=== PATIENT | female | born 1990 | race Caucasian/White ===

== ENCOUNTER 2022-07-12 07:40 | Emergency (ER) | payer OTHER ==
--- NOTE | 2022-07-12 07:51 | ED Physician Documentation ---
PD HPI LOWER EXT INJURY - Stated complaint Stated Complaint: RT ANKLE INJURY - History obtained from History obtained from: Patient - History of Present Illness PD HPI LOW EXT INJURY LOCATION: Right, Ankle Type of injury: Other (has had onset of medial right ankle pain without abrupt injury over past few weeks. Seen by PCP and Rx Ibuprofen and referred for PT, which is not until Nov. pain with plantarflex and wegiht bearing, the movement of putting boot on as well. Significantly increased pain the past 2 days with standing.). No: Fall, Twist Timing - onset: How many weeks ago (2-3) Timing - details: Gradual onset, Still present (much increased the past couple days), Waxing and waning Improved by: Rest Worsened by: Moving Associated symptoms: No: Weakness, Numbness, Swelling, Discolored Similar symptoms before: Diagnosis (had ankle avulsion fx and ligament tear 5 years ago. Healed to normal function with occ pains.) Recently seen: Clinic Review of Systems Musculoskeletal: denies: Joint swelling Neurologic: denies: Focal weakness, Numbness PD PAST MEDICAL HISTORY - Past Medical History Past Medical History: No Endocrine/Autoimmune: None Musculoskeletal: None - Present Medications Home Medications: Ambulatory Orders Medication Instructions Recorded Confirmed HYDROcod/ACETAM 5/325 [[place] 5/325] 1 ea PO Q6H PRN #12 tablet 07/12/22 Meloxicam [Mobic] 7.5 mg PO BID 10 Days #20 tablet 07/12/22 Spironolactone [Aldactone] 50 mg PO DAILY 07/12/22 07/12/22 - Allergies Allergies/Adverse Reactions: Allergies Allergy/AdvReac Type Severity Reaction Status Date / Time No Known Drug Allergies Allergy Verified 07/12/22 07:53 PD ED PE NORMAL - Vitals Vital signs reviewed: Yes - General General: Alert and oriented X 3, Well developed/nourished - Derm Derm: Normal color, Warm and dry - Extremities Extremities: Other (The right ankle shows tenderness along the anteromedial aspect just forward of the medial malleolus. No redness swelling or effusion. Laterally not tender. Achilles is firm and not tender. Range of motion is guarded for plantarflexion and inversion.) - Neuro Neuro: Alert and oriented X 3, No motor deficit, No sensory deficit Results - Vitals Vitals: Vital Signs - 24 hr 07/12/22 07:48 Temperature 36.4 C L Heart Rate 73 Respiratory 14 Rate Blood Pressure 129/68 O2 Saturation 100 Oxygen O2 Source Room air - Rads (name of study) right ankle Radiology: Prelim report reviewed, See rad report PD MEDICAL DECISION MAKING - ED course Complexity details: reviewed results, considered differential (sounds likely some ankle tendonitis without acute forceful new injury. Get xray and provide s plinting. Crutches short term due to pain. NSAIDs regularly. f/u PCP/PT/Ortho. ), d/w patient Departure - Departure Clinical Impression: Acute right ankle pain, Tendonitis of ankle Condition: Stable Record reviewed to determine appropriate education?: Yes Follow-Up: TIFFANIE GILBERT MD [Primary Care Provider] - [facility] [Provider Group] Prescriptions: Meloxicam [Mobic] 7.5 mg PO BID 10 Days #20 tablet HYDROcod/ACETAM 5/325 [[place] 5/325] 1 ea PO Q6H PRN #12 tablet PRN Reason: Pain Comments: Presume there is some irritation of the ligaments or muscles through the ankle. This can be a slow progression process due to repetitive irritation and use. Likely the underlying prior injury may be contributing with scar tissue etc. Your x-ray does not show any obvious acute fractures. Decreased range of motion and use of the ankle along with some regular anti- inflammatories hopefully will help improve this. Use the cast boot when up and around for the next couple of weeks. Meloxicam anti-inflammatory twice daily (longer lasting than ibuprofen so it can be taken not as often). Add Tylenol every 4-6 hours as needed for pain or hydrocodone/acetaminophen if needed for worse pain. Crutches short-term as needed for pain medication. Progress weightbearing as tolerated but continue to use the boot orthosis. Follow-up with your primary care and/or orthopedics for reevaluation in about a week to see how well the above treatments are doing. I transmitted your prescriptions to [facility] pharmacy. I am prescribing a short course of narcotic pain medication for you. These are potentially dangerous and addictive medications that should be used carefully. These medications may constipate you. Take an [id number] stool softener such as docusate twice daily with plenty of water while taking these medications. If you go 24 hours without a bowel movement, take [id number] MiraLAX, per package instructions. Do not drink or drive while taking these medications. If you received narcotic or sedating medications while in the emergency department do not drive for 24 hours. Store this medication in a safe, secure place and out of reach of children. It is a violation of federal law to give or sell this medication to another person or to use in a manner other than prescribed. The ED will not refill narcotic prescriptions, including prescriptions lost or stolen. You can dispose of unwanted medications at the [facility]'s office or at several pharmacies such as [facility]. Forms: Activity restrictions
[2022-07-12 07:53] VITALS: BP 129/68
[2022-07-12] MEDS ORDERED: HYDROcod/ACETAM 5/325 MG TABLET PO STA (08:06)
--- NOTE | 2022-07-12 08:39 | XRAY Report ---
PROCEDURE: Ankle 3 View RT INDICATIONS: medial ankle pain with walking TECHNIQUE: 3 views of the ankle were acquired. COMPARISON: None FINDINGS: Bones: No fractures or dislocations. Ankle mortise is normally aligned. No suspicious bony lesions . Soft tissues: No tibiotalar joint effusion. Achilles tendon appears normal. IMPRESSION: No acute osseous abnormality. If symptoms persist, follow-up radiographs and/or CT or MR I may be helpful for further evaluation. Reviewed by: Miguel Navarro MD on 07/12/2022 8:38 AM PDT Approved by: Miguel Navarro MD on 07/12/2022 8:38 AM PDT Station ID: [id number]
== END 2022-07-12 08:55 | disposition home or self-care (01) ==
LOC: ED 07:40
DX: M25.571 Pain in right ankle and joints of right foot (principal); M77.51 Other enthesopathy of right foot and ankle
CPT/HCPCS: 73610; 99282; 99283; A9270

== ENCOUNTER 2022-07-27 14:15 | Outpatient (CLI) | payer OTHER ==
--- NOTE | 2022-07-27 14:53 | SLEEP CARE CONSULTATION ---
Information from patient questionnaire entered by Robert Cuello. I have reviewed and concur with the information entered by Robert Cuello. This document represents the service I personally performed and the decisions made by me, Shi Mills ARNP. History of Present Illness Service Date and Time: 07/27/2022 1415 Reason for Visit: New patient Chief Complaint: reports: Insomnia, Unrefreshed sleep, Snoring, Excessive daytime sleepiness, Fatigue, Frequent awakenings at night Date of Onset: >2 yrs Usual bedtime: 10 PM Time it takes to fall asleep: about 1 hour Snores at night: Yes Observed to quit breathing while asleep: No Sleeps alone due to snoring: No Number of times waking at night: 2-3 Reasons for waking at night: reports: Bathroom. denies: Choking, Snoring, Gasping for air Toss, Turn, or Twitch while sleeping: Yes Recalls having dreams: No Usually gets out of bed at: 0600 Feels refreshed in the morning: No Morning headache: Yes (not usually; gets at night when laying down) Sleepy or fatigued during the day: Yes Ever fallen asleep while driving: No Takes day naps: No Dreams during day naps: No Prior sleep studies: No Additional HPI information: I had the pleasure of seeing ANNE MAGALLANES today regarding the possibility of her having a sleep disorder. Her current complaints are frequent night awakenings, excessive daytime sleepiness, fatigue, insomnia, snoring and unrefreshed sleep. She has a history of really bad gastric reflux and was encouraged by her dentist to be checked for sleep apnea. She does snore according to her . She feels she wakes up 2-3 times a night and rarely wakes up feeling rested. She can take an hour of so to fall asleep at the beginning of the night. 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 Patient is and lives in [place]. Have you smoked in the past 12 months: No Alcohol use: Yes Alcohol amount and frequency: 2-3 drinks on weekends Caffeine use: Yes Caffeine amount and frequency: 2-3 cups daily Family History Family history of sleep disordered breathing: No Family Hx Sleep Apnea: Father: Snoring Allergies and Home Medications Drug allergies reviewed: Yes (NKDA) Home medication list reviewed: Yes Allergy and home medication list: Allergies No Known Drug Allergies Allergy (Verified 07/12/22 07:53) Medications: Spironolactone Review of Systems Gastrointestinal: reports: heartburn, difficulty swallowing Neurological: reports: headaches Psychiatric: reports: anxiety Ear/Nose/Throat: reports: nasal congestion, sinus problems, dry mouth/throat (most of the day), hoarseness, tonsillectomy, wisdom teeth removed Musculoskeletal: reports: joint pain (right ankle pain) Physical Exam Vital signs obtained and entered by: ROBERT Dia MA Blood Pressure: 112/62 (left arm) Cuff size: regular Heart Rate: 67 O2 Saturation: 97 Height: 5 ft 9 in Weight: 165 lb Body Mass Index: 24.3 BMI Classification: Normal Neck circumference: 13.75 (inches) Mouth and throat: narrow oropharynx Soft palate: long Hard palate: normal Uvula: normal, long Uvula visualization: 25% Mallampati Class III Tongue: normal in size Tonsils: absent bilaterally Neck: normal w/o lymphadenopathy or thyromegaly Heart: regular rate and rhythm Lungs: clear bilaterally Impression and Plan 1. Suspected Obstructive Sleep Apnea-Hypopnea Syndrome, as suggested by a history of loud and irregular snoring, frequent awakening during the night, unrefreshed sleep, cognitive impairment, and excessive daytime sleepiness. Narrow oropharynx and obesity are common predisposing factors for obstructive sleep apnea-hypopnea syndrome. I recommend proceeding to polysomnography to confirm the diagnosis and to assess severity. If the patient has significant sleep disordered breathing, a manual CPAP titration study will also be performed to find the optimal treatment pressure. I informed the patient of what the sleep studies involve and after some discussion, obtained agreement to proceed. The pathophysiology of obstructive sleep apnea-hypopnea syndrome was discussed with the patient and health risks of cardiovascular and cerebrovascular disease if not treated. Risks of drowsy driving discussed in detail and patient advised to avoid long distance driving and to farm[employer] at the first sign of drowsiness. Patient agreed to plan. * Schedule polysomnography * Avoid long distance driving or driving when feeling sleepy. * Avoid alcohol, sedative and muscle relaxant around bedtime. * Attempt to lose weight. * Review instructions provided by trained office staff on how to prepare for the sleep study. * Return for follow-up after sleep study completed. Counseling Topics: Weight loss health impact Visit Type: In Office Time Spent with Patient (minutes): 32 Provider Statement: I spent 100% of the Face to Face Visit with the patient with greater than 50% spent counseling the patient and coordination of care.
[2022-07-27 14:54] VITALS: BP 112/62
== END 2022-07-27 14:16 | disposition home or self-care (01) ==
LOC: SC 14:15
PROVIDERS: ATTEND Nurse Practitioner Family
DX: R06.83 Snoring (principal); G47.8 Other sleep disorders; G47.10 Hypersomnia, unspecified; R53.83 Other fatigue
CPT/HCPCS: 99203; 99212

== ENCOUNTER 2022-08-15 20:46 | Emergency (ER) | payer OTHER ==
--- OUTSIDE RECORDS SUMMARY | 2022-08-15 21:09 | EXTERNAL MEDICAL SUMMARY RPT | Continuity of Care Document ---
:1990 Author Organization [facility] Address [address] [place] [address] Phone Allergies No information. Encounters No information. Functional Status No information. Immunizations No information. Medications No information. Problems No information. Procedures No information. Results/Labs test date author facility value unit interpret ation Result panel 1 (unknown) (no (unknown) (unknown) (no value) (units (unk nown) date) unknown) (unknown) (no (unknown) (unknown) 1. No marrow edema. (unit s (unknown) date) No fracture or unknown) dislocation. No metatarsal stress (unknown) (no (unknown) (unknown) 07/27/22 (units (unkno wn) date) unknown) (unknown) (no (unknown) (unknown) [address] [place] [address] (units (unknown) date) unknown) (unknown) (no (unknown) (unknown) 2. Right foot (units ( unknown) date) tendons and ligaments unknown) are grossly intact. No muscle signal (unknown) (no (unknown) (unknown) Accession Number: (units (unknown) date) [id number] unknown) (unknown) (no (unknown) (unknown) Age/Sex: 32 / F Date (uni ts (unknown) date) of Service: unknown) (unknown) (no (unknown) (unknown) [place] [address] (unit s (unknown) date) unknown) (unknown) (no (unknown) (unknown) Approved by: Ashwin (units (unknown) date) Jessika Maher on unknown) 07/28/2022 at 10:56 (unknown) (no (unknown) (unknown) Bones and joints: No (uni ts (unknown) date) bone marrow unknown) contusions or metatarsal stress fractures. (unknown) (no (unknown) (unknown) COMPARISON: None. (units (unknown) date) unknown) (unknown) (no (unknown) (unknown) : 1990 (units (unknown) date) Acct:[id number] unknown) (unknown) (no (unknown) (unknown) Dictated by: Ashwin (units (unknown) date) Jessika Maher on unknown) 07/28/2022 at 10:54 (unknown) (no (unknown) (unknown) FINDINGS: (units (unkn own) date) unknown) (unknown) (no (unknown) (unknown) IMPRESSION: (units (un known) date) unknown) (unknown) (no (unknown) (unknown) INDICATIONS: PAIN IN (uni ts (unknown) date) RIGHT FOOT unknown) (unknown) (no (unknown) (unknown) Image quality: (units (unknown) date) Excellent. unknown) (unknown) (no (unknown) (unknown) [facility] (units (unknown) date) unknown) (unknown) (no (unknown) (unknown) Lisfranc ligament (units (unknown) date) appears intact. No unknown) soft tissue ganglion cysts or bursal (unknown) (no (unknown) (unknown) Loc: MRI (units (unkno wn) date) unknown) (unknown) (no (unknown) (unknown) [id number] (units (unk nown) date) unknown) (unknown) (no (unknown) (unknown) Magnetic Resonance (units (unknown) date) Report unknown) (unknown) (no (unknown) (unknown) Noncontrast sagittal (uni ts (unknown) date) T1 spin echo and T2 unknown) fast spin echo with fat saturation, (unknown) (no (unknown) (unknown) Ordering Provider: (units (unknown) date) Yasmine Espinoza MD unknown) (unknown) (no (unknown) (unknown) PROCEDURE: MR FOOT (units (unknown) date) RT WO CON unknown) (unknown) (no (unknown) (unknown) Patient: (units (unkno wn) date) Edith Chu unknown) MR#: (unknown) (no (unknown) (unknown) Procedure: MR foot (units (unknown) date) RT wo con unknown) (unknown) (no (unknown) (unknown) Signed (units (unkno wn) date) unknown) (unknown) (no (unknown) (unknown) Soft tissues: The (units (unknown) date) visualized plantar unknown) foot muscles demonstrate normal signal (unknown) (no (unknown) (unknown) TECHNIQUE: (units (unk nown) date) unknown) (unknown) (no (unknown) (unknown) The distal (units (unk nown) date) unknown) (unknown) (no (unknown) (unknown) The (units (unkno wn) date) unknown) (unknown) (no (unknown) (unknown) Visualized flexor (units (unknown) date) and extensor tendons unknown) appear intact, without tenosynovitis. (unknown) (no (unknown) (unknown) abnormalities. (units (unknown) date) unknown) (unknown) (no (unknown) (unknown) and T2 fast (units (un known) date) unknown) (unknown) (no (unknown) (unknown) and bulk. (units (unkn own) date) unknown) (unknown) (no (unknown) (unknown) collections. (units (u nknown) date) Sagittal images unknown) demonstrate no evidence for plantar plate tears. (unknown) (no (unknown) (unknown) fluid (units (unkno wn) date) unknown) (unknown) (no (unknown) (unknown) fractures. (units (unk nown) date) unknown) (unknown) (no (unknown) (unknown) insertions of the (units (unknown) date) peroneus brevis and unknown) longus tendons appear intact. The (unknown) (no (unknown) (unknown) long-axis T1 (units (u nknown) date) unknown) (unknown) (no (unknown) (unknown) metatarsophalangeal (unit s (unknown) date) joint degeneration. unknown) No intraosseous lesions. (unknown) (no (unknown) (unknown) principal (units (unkn own) date) unknown) (unknown) (no (unknown) (unknown) sesamoid bones (units (unknown) date) appear in expected unknown) positions, without internal edema. No (unknown) (no (unknown) (unknown) significant (units (un known) date) unknown) (unknown) (no (unknown) (unknown) spin echo and T2 (units (unknown) date) fast spin echo with unknown) fat saturation, short-axis T1 spin echo (unknown) (no (unknown) (unknown) spin echo with fat (units (unknown) date) saturation through unknown) the forefoot. Result panel 2 (unknown) (no (unknown) (unknown) (no value) (units (unk nown) date) unknown) (unknown) (no (unknown) (unknown) 1. Mild focal signal (uni ts (unknown) date) abnormality at the unknown) 2nd metatarsal head adjacent to the (unknown) (no (unknown) (unknown) 08/11/22 (units (unkno wn) date) unknown) (unknown) (no (unknown) (unknown) [address] [place] [address] (units (unknown) date) unknown) (unknown) (no (unknown) (unknown) 2. Mild hallux (units (unknown) date) valgus and mild to unknown) moderate degenerative changes at the 1st (unknown) (no (unknown) (unknown) 2nd (units (unkno wn) date) metatarsophalangeal unknown) joint. (unknown) (no (unknown) (unknown) 3. Mild tendinosis (units (unknown) date) of the flexor unknown) hallucis longus tendon. (unknown) (no (unknown) (unknown) Accession Number: (units (unknown) date) [id number] unknown) (unknown) (no (unknown) (unknown) Accession Number: (units (unknown) date) [id number] unknown) (unknown) (no (unknown) (unknown) Age/Sex: 32 / Date (uni ts (unknown) date) of Service: unknown) (unknown) (no (unknown) (unknown) [place] [address] (unit s (unknown) date) unknown) (unknown) (no (unknown) (unknown) Anterior structures: (uni ts (unknown) date) The extensor tendons unknown) appear intact. (unknown) (no (unknown) (unknown) Approved by: Miguel (unit s (unknown) date) Jessika Knutson on unknown) 08/15/2022 at 8:25 (unknown) (no (unknown) (unknown) Approved by: Sherwin (units (unknown) date) Jessika Suazo on unknown) 08/14/2022 at 10:55 (unknown) (no (unknown) (unknown) Bones and joints: (units (unknown) date) Mild focal signal unknown) abnormality is seen within the 2nd (unknown) (no (unknown) (unknown) Bones and joints: No (uni ts (unknown) date) marrow edema. No unknown) dislocation. No osteochondral defect. (unknown) (no (unknown) (unknown) COMPARISON: [facility], MR, MR unknown) ANKLE RT WO CON, 07/27/2022, 20:10. (unknown) (no (unknown) (unknown) COMPARISON: [facility] (units (unknown) date) [facility], MR, MR FOOT unknown) RT WO CON, 07/27/2022, 19:42. (unknown) (no (unknown) (unknown) : 1990 (units (unknown) date) Acct:[id number] unknown) (unknown) (no (unknown) (unknown) FINDINGS: (units (unkn own) date) unknown) (unknown) (no (unknown) (unknown) IMPRESSION: Mild (units (unknown) date) edema noted in the unknown) pre Achilles space, correlate with (unknown) (no (unknown) (unknown) IMPRESSION: (units (un known) date) unknown) (unknown) (no (unknown) (unknown) INDICATIONS: PAIN IN (uni ts (unknown) date) RIGHT FOOT/ANKLE unknown) (unknown) (no (unknown) (unknown) Image quality: (units (unknown) date) Excellent. unknown) (unknown) (no (unknown) (unknown) [facility] (units (unknown) date) unknown) (unknown) (no (unknown) (unknown) Lateral structures: (unit s (unknown) date) The ATFL is mildly unknown) thickened. This CF and PTFL are (unknown) (no (unknown) (unknown) Loc: MRI (units (unkno wn) date) unknown) (unknown) (no (unknown) (unknown) [id number] (units (unk nown) date) unknown) (unknown) (no (unknown) (unknown) Magnetic Resonance (units (unknown) date) Report unknown) (unknown) (no (unknown) (unknown) Medial structures: (units (unknown) date) Mild fluid unknown) surrounding the posterior tibialis tendon again (unknown) (no (unknown) (unknown) No (units (unkno wn) date) unknown) (unknown) (no (unknown) (unknown) Noncontrast sagittal (uni ts (unknown) date) T1 spin echo and T2 unknown) fast spin echo with fat saturation, (unknown) (no (unknown) (unknown) Ordering Provider: (units (unknown) date) Yasmine Espinoza MD unknown) (unknown) (no (unknown) (unknown) PROCEDURE: MR ANKLE (unit s (unknown) date) RT WO CON unknown) (unknown) (no (unknown) (unknown) PROCEDURE: MR FOOT (units (unknown) date) RT WO CON unknown) (unknown) (no (unknown) (unknown) Patient: (units (unkno wn) date) Edith Chu unknown) MR#: (unknown) (no (unknown) (unknown) Possible prior (units (unknown) date) injury of the ATFL. unknown) Foot findings are separately dictated. (unknown) (no (unknown) (unknown) Posterior and (units ( unknown) date) plantar structures: unknown) The Achilles tendon is intact. No (unknown) (no (unknown) (unknown) Procedure: MR ankle (unit s (unknown) date) RT wo con unknown) (unknown) (no (unknown) (unknown) Procedure: MR foot (units (unknown) date) RT wo con unknown) (unknown) (no (unknown) (unknown) Sagittal images (units (unknown) date) unknown) (unknown) (no (unknown) (unknown) Signed (units (unkno wn) date) unknown) (unknown) (no (unknown) (unknown) Soft tissues: Mild (units (unknown) date) chronic pressure unknown) related changes are seen in the (unknown) (no (unknown) (unknown) TECHNIQUE: (units (unk nown) date) unknown) (unknown) (no (unknown) (unknown) There is mild (units ( unknown) date) unknown) (unknown) (no (unknown) (unknown) This could be due to (uni ts (unknown) date) irritation/impingemen unknown) t. Otherwise no significant (unknown) (no (unknown) (unknown) and T2 fast spin (units (unknown) date) echo with fat unknown) saturation through the ankle/hindfoot. (unknown) (no (unknown) (unknown) appears intact. No (units (unknown) date) soft tissue ganglion unknown) cysts. No interdigital mass. (unknown) (no (unknown) (unknown) articular surface is (uni ts (unknown) date) seen. Superimposed unknown) moderate degenerative changes are seen (unknown) (no (unknown) (unknown) articular surface (units (unknown) date) unknown) (unknown) (no (unknown) (unknown) articular (units (unkn own) date) unknown) (unknown) (no (unknown) (unknown) at the (units (unkno wn) date) unknown) (unknown) (no (unknown) (unknown) axial proton (units (u nknown) date) unknown) (unknown) (no (unknown) (unknown) changes or a chronic (uni ts (unknown) date) osteochondral lesion. unknown) No significant collapse of the (unknown) (no (unknown) (unknown) collapse. Associated (uni ts (unknown) date) moderate degenerative unknown) changes are seen with at least (unknown) (no (unknown) (unknown) complex are also (units (unknown) date) intact. unknown) (unknown) (no (unknown) (unknown) cystic changes (units (unknown) date) versus osteonecrosis unknown) or an osteochondral lesion without (unknown) (no (unknown) (unknown) cystic (units (unkno wn) date) unknown) (unknown) (no (unknown) (unknown) degenerative changes (uni ts (unknown) date) are seen at the 1st unknown) metatarsophalangeal joint. There is (unknown) (no (unknown) (unknown) demonstrate no (units (unknown) date) evidence for plantar unknown) plate tears. (unknown) (no (unknown) (unknown) density fast spin (units (unknown) date) echo and T2 fast spin unknown) echo with fat saturation, coronal T1 (unknown) (no (unknown) (unknown) derangement of the (units (unknown) date) ankle. Mild possible unknown) tenosynovitis of the posterior (unknown) (no (unknown) (unknown) distal (units (unkno wn) date) unknown) (unknown) (no (unknown) (unknown) extending to the (units (unknown) date) distal articular unknown) surface, which could represent degenerative (unknown) (no (unknown) (unknown) extensor (units (unkno wn) date) unknown) (unknown) (no (unknown) (unknown) fascial edema. There (uni ts (unknown) date) is edema in the pre unknown) Achilles space. (unknown) (no (unknown) (unknown) flexor hallucis (units (unknown) date) longus tendinosis at unknown) the plantar aspect of the forefoot. The (unknown) (no (unknown) (unknown) flexor tendons are (units (unknown) date) otherwise intact. The unknown) deltoid ligament complex and tibial (unknown) (no (unknown) (unknown) intact (units (unkno wn) date) unknown) (unknown) (no (unknown) (unknown) intact. No (units (unk nown) date) unknown) (unknown) (no (unknown) (unknown) internal (units (unkno wn) date) unknown) (unknown) (no (unknown) (unknown) ligament (units (unkno wn) date) unknown) (unknown) (no (unknown) (unknown) location of pain. (units (unknown) date) unknown) (unknown) (no (unknown) (unknown) long-axis T1 (units (u nknown) date) unknown) (unknown) (no (unknown) (unknown) medial to the 1st (units (unknown) date) metatarsal head and unknown) plantar to the 5th metatarsal head. (unknown) (no (unknown) (unknown) metatarsal head (units (unknown) date) unknown) (unknown) (no (unknown) (unknown) metatarsophalangeal (unit s (unknown) date) joint. unknown) (unknown) (no (unknown) (unknown) mild hallux (units (un known) date) unknown) (unknown) (no (unknown) (unknown) partial (units (unkno wn) date) unknown) (unknown) (no (unknown) (unknown) pathologic joint (units (unknown) date) effusion. unknown) (unknown) (no (unknown) (unknown) pathologic plantar (units (unknown) date) unknown) (unknown) (no (unknown) (unknown) peroneus tendons. (units (unknown) date) Normal fat signal in unknown) the sinus tarsi. (unknown) (no (unknown) (unknown) plantar foot muscles (uni ts (unknown) date) demonstrate normal unknown) signal and bulk. Visualized flexor and (unknown) (no (unknown) (unknown) saturation (units (unk nown) date) unknown) (unknown) (no (unknown) (unknown) seen. The (units (unkn own) date) unknown) (unknown) (no (unknown) (unknown) spin echo and STIR, (unit s (unknown) date) short-axis T1 spin unknown) echo and T2 fast spin echo with fat (unknown) (no (unknown) (unknown) spin echo (units (unkn own) date) unknown) (unknown) (no (unknown) (unknown) spring (units (unkno wn) date) unknown) (unknown) (no (unknown) (unknown) subchondral (units (un known) date) unknown) (unknown) (no (unknown) (unknown) subcutaneous tissues (uni ts (unknown) date) unknown) (unknown) (no (unknown) (unknown) surface may (units (un known) date) represent Freiberg's unknown) infraction versus degenerative subchondral (unknown) (no (unknown) (unknown) syndesmotic (units (un known) date) thickening. The unknown) syndesmotic ligaments appear intact. Overall (unknown) (no (unknown) (unknown) tendons otherwise (units (unknown) date) appear intact, unknown) without tenosynovitis. The principal Lisfranc (unknown) (no (unknown) (unknown) thickness cartilage (unit s (unknown) date) loss and marginal unknown) osteophyte formation. Mild to moderate (unknown) (no (unknown) (unknown) through the (units (un known) date) forefoot. unknown) (unknown) (no (unknown) (unknown) tibialis. (units (unkn own) date) unknown) (unknown) (no (unknown) (unknown) valgus. Osseous (units (unknown) date) structures are unknown) otherwise intact. No intraosseous lesions. (unknown) (no (unknown) (unknown) visualized (units (unk nown) date) unknown) Social History No information. Vital Signs No information.
[2022-08-15 21:38] LABS: BASOPHILS # (AUTO) 0.1 10^3/uL (0.0-0.1); BASOPHILS % (AUTO) 0.8 %; EOSINOPHILS # (AUTO) 0.2 10^3/uL (0.0-0.7); EOSINOPHILS % (AUTO) 2.1 %; HCT - HEMATOCRIT 39.9 % (37.0-47.0); HGB - HEMOGLOBIN 13.4 g/dL (12.0-16.0); LYMPHOCYTES # (AUTO) 2.9 10^3/uL (1.5-3.5); LYMPHOCYTES % (AUTO) 31.9 %; MEAN CORPUSCULAR HEMOGLOBIN 29.8 pg (27.0-31.0); MEAN CORPUSCULAR HGB CONC 33.6 g/dL (32.0-36.0); MEAN CORPUSCULAR VOLUME 88.7 fL (81.0-99.0); MONOCYTES # (AUTO) 0.5 10^3/uL (0.0-1.0); MONOCYTES % (AUTO) 5.3 %; NEUTROPHILS # (AUTO) 5.4 10^3/uL (1.5-6.6); NEUTROPHILS % (AUTO) 59.8 %; PLT - PLATELET COUNT 328 10^3/uL (130-450); RED CELL DISTRIBUTION WIDTH 12.1 % (12.0-15.0); WHITE BLOOD COUNT 9.1 x10^3/uL (4.8-10.8)
[2022-08-15 21:53] LABS: ALBUMIN 4.2 g/dL (3.2-5.5); ALBUMIN/GLOBULIN RATIO 1.6 (1.0-2.2); BILIRUBIN,TOTAL 0.9 mg/dL (0.2-1.0); CREATININE 0.8 mg/dL (0.4-1.0); MAGNESIUM 2.2 mg/dL (1.7-2.8); POTASSIUM 3.5 mmol/L (3.5-5.0); TOTAL PROTEIN 6.8 g/dL (6.7-8.2)
--- NOTE | 2022-08-15 23:14 | ED Physician Documentation ---
History of Present Illness - Stated complaint Stated Complaint: IRREGULAR HEARTBEAT - Chief complaint Chief Complaint: Cardiac - History obtained from History obtained from: Patient - Additonal information Additional information: Patient is a 32-year-old female presenting for evaluation of palpitations. She has had 2 episodes in the last 24 hours. The first episode woke her up from her sleep last night and her second episode was around dinnertime this evening. She reports it lasted about 20 minutes and it felt that her heart was racing. They did check her pulse at home and it was normal rate.She denies having associated lightheadedness, feeling faint, chest pain or difficulty breathing. She reports taking deep breaths did help her symptoms. She is currently on a spironolactone, omeprazole and Lexapro and read online that these could interact with each other and became concerned prompting her to come to the ER for evaluation. She has been symptom-free since being here. She denies excess caffeine use, Alcohol use or drug use. Review of Systems Constitutional: denies: Fever Cardiac: reports: Palpitations. 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 : None HEENT: None Psych: Depression Musculoskeletal: None Derm: None - Past Surgical History Past Surgical History: Yes HEENT: Tonsil/Adenoidectomy - Present Medications Home Medications: Ambulatory Orders Medication Instructions Recorded Confirmed Spironolactone [Aldactone] 50 mg PO DAILY 07/12/22 07/12/22 - Allergies Allergies/Adverse Reactions: Allergies Allergy/AdvReac Type Severity Reaction Status Date / Time No Known Drug Allergies Allergy Verified 07/12/22 07:53 - Social History Does the pt smoke?: No Smoking Status: Never smoker Does the pt drink ETOH?: No Does the pt have substance abuse?: No - Immunizations Immunizations are current?: Yes - POLST Patient has POLST: No PD ED PE NORMAL - General General: Alert and oriented X 3, No acute distress, Well developed/nourished - HEENT HEENT: Atraumatic, Moist mucous membranes - Neck Neck: Supple, no meningeal sign - Cardiac Cardiac: RRR, Strong equal pulses - Respiratory Respiratory: No respiratory distress, Clear bilaterally - Abdomen Abdomen: Soft, Non tender - Derm Derm: Warm and dry - Neuro Neuro: Normal speech Results - Vitals Vitals: Vital Signs - 24 hr 08/15/22 08/15/22 08/15/22 20:50 22:22 23:17 Temperature 36.9 C 36.8 C Heart Rate 73 73 61 Respiratory 16 18 17 Rate Blood Pressure 135/76 H 127/80 116/67 O2 Saturation 98 98 99 Oxygen O2 Source Room air - EKG (time done) 2058 Rate: Rate (enter#) (70) Rhythm: NSR [place]: Normal Intervals: No: Prolonged QT Ischemia: No: ST elevation c/w ischemia - Labs Labs: Laboratory Tests 08/15/22 08/15/22 08/15/22 21:29 21:29 21:29 WBC 9.1 RBC 4.50 Hgb 13.4 Hct 39.9 MCV 88.7 MCH 29.8 MCHC 33.6 RDW 12.1 Plt Count 328 MPV 10.0 Neut # (Auto) 5.4 Lymph # (Auto) 2.9 Reynolds # (Auto) 0.5 Eos # (Auto) 0.2 Baso # (Auto) 0.1 Absolute Nucleated RBC 0.00 Nucleated RBC % 0.0 Sodium 137 Potassium 3.5 Chloride 101 Carbon Dioxide 27 Anion Gap 9.0 BUN 23 H Creatinine 0.8 Estimated GFR (MDRD) 84 L Glucose 94 Calcium 9.0 Magnesium 2.2 Total Bilirubin 0.9 AST 17 ALT 15 Alkaline Phosphatase 40 L Total Protein 6.8 Albumin 4.2 Globulin 2.6 Albumin/Globulin Ratio 1.6 TSH 3.12 PD MEDICAL DECISION MAKING - ED course Complexity details: reviewed results, re-evaluated patient, d/w patient ED course: Patient presenting for evaluation of palpitations. Her EKG shows a normal sinus rhythm with normal intervals. Her labs are reassuring. 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 She denied ever having symptoms of chest pain or difficulty breathing.Patient was counseled on concerning symptoms to return for and advised to have follow-up with her primary care doctor. Departure - Departure Disposition: 01 Home, Self Care Clinical Impression: Palpitations Condition: Stable Instructions: ED Palpitations Comments: Your EKG shows a normal rhythm and your labs are reassuring including your thyroid testing. Please follow-up with your primary care doctor. If you develop any worsening symptoms such as lightheadedness, feeling faint, chest pain or difficulty breathing then please return to the emergency department. Discharge Date/Time: 08/15/22 23:17
[2022-08-15 23:18] VITALS: BP 116/67
== END 2022-08-15 23:17 | disposition home or self-care (01) ==
LOC: ED 20:46
DX: R00.2 Palpitations (principal)
CPT/HCPCS: 36415; 80053; 83735; 84443; 85025; 93005; 99282; 99284

== ENCOUNTER 2022-08-16 19:40 | Outpatient (CLI) | payer OTHER | END 2022-08-16 19:41 | disposition home or self-care (01) | LOC: SC 19:40 | PROVIDERS: ATTEND Nurse Practitioner Family | DX: R06.83 Snoring (principal); G47.8 Other sleep disorders; G47.10 Hypersomnia, unspecified; R53.83 Other fatigue | CPT/HCPCS: 95810 ==

== ENCOUNTER 2022-08-29 08:00 | Outpatient (CLI) | payer OTHER | END 2022-08-29 23:59 | disposition home or self-care (01) | LOC: LAB.N 08:00 | PROVIDERS: ATTEND Physician Assistant Medical | DX: N30.00 Acute cystitis without hematuria (principal) | CPT/HCPCS: 87086 ==

== ENCOUNTER 2022-10-19 16:00 | Outpatient (CLI) | payer OTHER ==
--- NOTE | 2022-10-19 16:14 | SLEEP CARE CONSULTATION ---
Information from patient questionnaire entered by Yanci Cuello. I have reviewed and concur with the information entered by Yanci Cuello. This document represents the service I personally performed and the decisions made by , Shi Mills ARNP. History of Present Illness Service Date and Time: 10/19/2022 1600 Initial [place] Sleepiness Scale score: 15 Current [place] Sleepiness Scale score: 15 Additional HPI information: ANNE MAGALLANES returns via video telehealth visit for follow up and results of the recently performed polysomnography. The patient was informed of the following findings: No significant sleep disordered breathing with an average AHI of 0.0 and naomi oxygen saturation of 94%. I explained the pathophysiology behind obstructive sleep apnea. Patient does not have sleep apnea and was advised how weight gain could increase the risk of developing sleep apnea in the future. Patient counseled not drink alcohol less than 4 hours before bedtime as it can increase snoring and apnea. Patient was cautioned about risks of drowsy driving until sleepiness symptoms resolve. Sleep Study - Results Type of Sleep Study: Polysomnography (COMPLETED 08-16-22) Prior sleep studies: No Polysomnography/Home Sleep Study results: IMPRESSION: The quality of the study is good. The patient had normal sleep efficiency. The sleep architecture was normal as well. Respiratory monitoring showed no significant sleep disordered breathing (AHI = 0.0) or hypoxia (naomi oxygen saturation of 94%). The patient slept adequately in supine position (supine AHI = 0.0; nonsupine = 0.00). No audible snore. There was no significant periodic leg movement of sleep. Cardiac rhythm was normal sinus rhythm without significant arrhythmia. No abnormal behavior (parasomnia) observed during the night. Allergies and Home Medications Drug allergies reviewed: Yes (NKDA) Home medication list reviewed: Yes (no changes) Review of Systems Review of systems same as previous: No (sinus surgery, ethmoidectomy, shrunk turbinates) Physical Exam Vital signs obtained and entered by: VIA PHONE Height: 5 ft 9 in Weight: 165 lb Body Mass Index: 24.3 BMI Classification: Normal Impression and Plan 1. 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 She did not have any sleep disordered breathing noted during study or audible snoring. She was advised to follow up with her dentist for the bruxism as needed. She voiced understanding. * Follow up with dentist as needed * Avoid alcohol consumption near bedtime * The patient is cautioned about driving until sleepiness is completely resolved. * Return as needed for follow up. Visit Type: Telehealth Video Video Type: Doximity Patient Location: work Location of Provider: Office Patient agrees and consents to this telehealth visit type: Yes Patient agrees to have their insurance billed: Yes Time Spent with Patient (minutes): 10 Provider Statement: I spent 100% of the Telehealth Video Call with the patient with greater than 50% spent counseling the patient and coordination of care.
== END 2022-10-19 16:01 | disposition home or self-care (01) ==
LOC: SC 16:00
PROVIDERS: ATTEND Nurse Practitioner Family
DX: G47.63 Sleep related bruxism (principal)

== ENCOUNTER 2023-06-04 08:00 | Outpatient (CLI) | payer OTHER ==
[2023-06-04 23:26] LABS: BACTERIAL VAGINOSIS DNA NEGATIVE (NEGATIVE); CANDIDA GLABRATA DNA NEGATIVE (NEGATIVE); CANDIDA GROUP DNA NEGATIVE (NEGATIVE); CANDIDA KRUSEI DNA NEGATIVE (NEGATIVE); TRICHOMONAS VAGINALIS DNA NEGATIVE (NEGATIVE)
[2023-06-05 00:14] LABS: CHLAMYDIA TRACHOMATIS DNA NEGATIVE (NEGATIVE); NEISSERIA GONORRHOEAE DNA NEGATIVE (NEGATIVE)
== END 2023-06-04 23:59 | disposition home or self-care (01) ==
LOC: LAB.N 08:00
PROVIDERS: ATTEND Registered Nurse
DX: R10.9 Unspecified abdominal pain (principal)
CPT/HCPCS: 81514; 87491; 87591; 87661

== ENCOUNTER 2024-05-06 16:01 | Emergency (ER) | payer OTHER ==
--- NOTE | 2024-05-06 16:14 | ED Physician Documentation ---
PD HPI MHE - Stated complaint Stated Complaint: SI - Additional information Additional information: 34-year-old female with history of panic attacks, anxiety, depression presents emergency department for increased suicidal ideation. 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 She denies any hallucinations no homicidal ideation says that she had a really bad day at work and work has been very stressful lately she feels very hopeless and trapped and feels like she does not want to be alive. She does not have an active plan of hurting herself she says that she does not feel like she needs hospitalization has not had hospitalization for suicidal ideation in the past. She says that she is going to be seeing family in [place] next week because she is going to be on leave and is looking forward to that and says that she knows that she can get through this but was told to come to the emergency department from [employer]. PD PAST MEDICAL HISTORY - Past Medical History Cardiovascular: None Respiratory: None Neuro: None Endocrine/Autoimmune: None GI: GERD SHELLFISH GROWER: None : None HEENT: None Psych: Depression Musculoskeletal: None Derm: None - Past Surgical History Past Surgical History: Yes HEENT: Tonsil/Adenoidectomy - Present Medications Home Medications: Ambulatory Orders Medication Instructions Recorded Confirmed Spironolactone [Aldactone] 25 mg PO DAILY 07/12/22 05/06/24 Dextroamphetamine/Amphetamine 10 mg PO DAILY 05/06/24 05/06/24 [Adderall 10 mg Tablet] - Allergies Allergies/Adverse Reactions: Allergies Allergy/AdvReac Type Severity Reaction Status Date / Time No Known Drug Allergies Allergy Verified 05/06/24 16:08 - Social History Does the pt smoke?: No Smoking Status: Never smoker Does the pt drink ETOH?: No Does the pt have substance abuse?: No - Immunizations Immunizations are current?: Yes - POLST Patient has POLST: No PD ED PE NORMAL - Vitals Vital signs reviewed: Yes - General General: Alert and oriented X 3, No acute distress, Well developed/nourished - HEENT HEENT: Atraumatic, PERRL - Neck Neck: Supple, no meningeal sign, No bony TTP - Cardiac Cardiac: RRR - Respiratory Respiratory: No respiratory distress, Clear bilaterally - Abdomen Abdomen: Normal bowel sounds - Back Back: No CVA TTP, No spinal TTP - Derm Derm: Normal color, Warm and dry, No rash - Neuro Neuro: Alert and oriented X 3, manager technical training 2-12 intact, No motor deficit, Normal speech Eye Opening: Spontaneous Motor: Obeys Commands Verbal: Oriented GCS Score: 15 PD ED PE EXPANDED - Psych Psych: Depressed, Suicidal, Tearful, Withdrawn, Anxious. No: Intoxicated / AOB, Homicidal, Poor eye contact, Non verbal, Agitated, Combative, Manic, Pressured speech, Flight of ideas, Auditory hallucinations, Visual hallucinations, Tactile hallucinations, Delusions Results - Vitals Vitals: Oxygen O2 Source Room air - Labs Labs: Laboratory Tests 05/06/24 05/06/24 05/06/24 16:30 16:42 16:42 WBC 9.4 RBC 4.13 L Hgb 12.8 Hct 37.9 MCV 91.8 MCH 31.0 MCHC 33.8 RDW 12.6 Plt Count 348 MPV 9.8 Neut # (Auto) 7.0 H Lymph # (Auto) 1.8 [place] # (Auto) 0.4 Eos # (Auto) 0.1 Baso # (Auto) 0.1 Absolute Nucleated RBC 0.00 Nucleated RBC % 0.0 Sodium 138 Potassium 4.1 Chloride 104 Carbon Dioxide 26 Anion Gap 8.0 BUN 31 H Creatinine 1.0 Estimated GFR (MDRD) 64 L Glucose 83 Calcium 9.5 Total Bilirubin 0.7 AST 20 ALT 27 Alkaline Phosphatase 32 L Total Protein 6.8 Albumin 4.3 Globulin 2.5 Albumin/Globulin Ratio 1.7 Lipase 39 TSH 1.86 Urine Color YELLOW Urine Clarity CLEAR Urine pH 6.0 Ur Specific [place] 1.020 Urine Protein NEGATIVE Urine Glucose (UA) NEGATIVE Urine Ketones NEGATIVE Urine Occult Blood TRACE-INTA Urine Nitrite NEGATIVE Urine Bilirubin NEGATIVE Urine Urobilinogen 0.2 (NORMAL) Ur Leukocyte Esterase NEGATIVE Ur Microscopic Review NOT INDICATED Urine Culture Comments NOT INDICATED Urine HCG, Qual NEGATIVE Salicylates < 1.5 Urine Opiates Screen NEGATIVE Ur Buprenorphine Scrn NEGATIVE Ur Oxycodone Screen NEGATIVE Urine Methadone Screen NEGATIVE Acetaminophen 0.2 Ur Barbiturates Screen NEGATIVE Ur Tricyclics Screen NEGATIVE Ur Phencyclidine Scrn NEGATIVE Ur Amphetamine Screen POSITIVE H U Methamphetamines Scrn NEGATIVE U Benzodiazepines Scrn NEGATIVE Urine Cocaine Screen NEGATIVE U Cannabinoids Screen NEGATIVE Ur Drug Screen Comment CUTOFF CONC BELOW: Ethyl Alcohol < 10.0 PD Medical Decision Making - ED course ED course: 34-year-old female presents emergency department for suicidal ideation. She does not express a plan and says that she does not think that she needs hospitalization but was told to come to the emergency department for further evaluation. Labs are complete for further evaluation she has no leukocytosis negative urine drug screen aside from amphetamine patient has prescribed Adderall. No leukocytosis no anemia TSH normal no electrolyte abnormalities no signs of UTI. Patient is medically safe for a telepsych evaluation. Telepsych evaluation was completed and they are not recommending inpatient hospitalization at this point in time. Patient is highly motivated to stay alive as she does have a family trip to [place] coming up. Says that she is can be going home reaching out to family and friends that she has a safety net and she also has a large support group of people. She safer discharge at this time and understands when to come back to the emergency department and who to get a hold of if she starts to feel suicidal ideation again. Currently does not have any suicidal ideation. Departure - Departure Disposition: 01 Home, Self Care Clinical Impression: Suicidal ideation Instructions: ED Stress React, ED Depression Comments: Thank you for trusting us with your care. Please come back to the emergency department for having any increased suicidal ideation or thoughts. Please call [phone] if you are having also any suicidal ideation or thoughts or any other mental health concerns. Please follow-up with your psychiatrist at your next scheduled visit. Forms: PCP List Discharge Date/Time: 05/06/24 19:39
[2024-05-06 16:19] VITALS: BP 127/74; O2SAT 98
[2024-05-06 16:40] LABS: BILIRUBIN,URINE NEGATIVE (NEGATIVE); GLUCOSE, URINE (UA) NEGATIVE (NEGATIVE); KETONES,URINE (UA) NEGATIVE (NEGATIVE); LEUKOCYTE ESTERASE, URINE NEGATIVE (NEGATIVE); NITRITE,URINE NEGATIVE (NEGATIVE); OCCULT BLOOD,URINE TRACE-INTA (NEGATIVE); PROTEIN,URINE NEGATIVE (NEGATIVE); UROBILINOGEN,URINE 0.2 (NORMAL) E.U./dL (NORMAL)
[2024-05-06 16:43] LABS: CLARITY,URINE CLEAR (CLEAR); HCG UR QUAL NEGATIVE
[2024-05-06 16:45] LABS: BASOPHILS # (AUTO) 0.1 10^3/uL (0.0-0.1); BASOPHILS % (AUTO) 0.7 %; EOSINOPHILS # (AUTO) 0.1 10^3/uL (0.0-0.7); HCT - HEMATOCRIT 37.9 % (37.0-47.0); HGB - HEMOGLOBIN 12.8 g/dL (12.0-16.0); LYMPHOCYTES # (AUTO) 1.8 10^3/uL (1.5-3.5); LYMPHOCYTES % (AUTO) 19.5 %; MEAN CORPUSCULAR HGB CONC 33.8 g/dL (32.0-36.0); MEAN CORPUSCULAR VOLUME 91.8 fL (81.0-99.0); MEAN PLATELET VOLUME 9.8 fL (7.9-10.8); MONOCYTES # (AUTO) 0.4 10^3/uL (0.0-1.0); MONOCYTES % (AUTO) 4.4 %; NEUTROPHILS % (AUTO) 74.3 %; PLT - PLATELET COUNT 348 10^3/uL (130-450); RED BLOOD COUNT 4.13 10^6/uL (4.20-5.40); RED CELL DISTRIBUTION WIDTH 12.6 % (12.0-15.0); WHITE BLOOD COUNT 9.4 x10^3/uL (4.8-10.8)
[2024-05-06 16:52] LABS: AMPHETAMINE SCREEN,URINE POSITIVE (NEGATIVE); BARBITURATE SCREEN,UR NEGATIVE (NEGATIVE); BENZODIAZEPINES SCREEN, URINE NEGATIVE (NEGATIVE); BUPRENORPHINE SCREEN, URINE NEGATIVE (NEGATIVE); COCAINE SCREEN URINE NEGATIVE (NEGATIVE); METHADONE SCREEN, URINE NEGATIVE (NEGATIVE); METHAMPHETAMINES SCREEN, URINE NEGATIVE (NEGATIVE); OPIATE SCREEN, URINE NEGATIVE (NEGATIVE); OXYCODONE SCREEN, URINE NEGATIVE (NEGATIVE); THC CANNABINOID SCREEN, URINE NEGATIVE (NEGATIVE); TRICYCLIC ANTIDEPRESSANT,URINE NEGATIVE (NEGATIVE)
[2024-05-06 17:03] LABS: ACETAMINOPHEN 0.2 ug/mL; ALBUMIN 4.3 g/dL (3.2-5.5); ALBUMIN/GLOBULIN RATIO 1.7 (1.0-2.2); ALKALINE PHOSPHATASE 32 IU/L (42-121); ALT ALANINE AMINOTRANSFERASE 27 IU/L (10-60); AST ASPARTATE AMINOTRANSFERASE 20 IU/L (10-42); BILIRUBIN,TOTAL 0.7 mg/dL (0.2-1.0); BUN - BLOOD UREA NITROGEN 31 mg/dL (6-20); CALCIUM 9.5 mg/dL (8.5-10.3); CARBON DIOXIDE - CO2 26 mmol/L (21-32); CHLORIDE 104 mmol/L (101-111); ETOH - ETHANOL < 10.0 mg/dL; GFR - MDRD 64 (>89); GLUCOSE 83 mg/dL (74-104); LIPASE 39 U/L (11-82); POTASSIUM 4.1 mmol/L (3.5-4.5); SODIUM 138 mmol/L (135-145); TOTAL PROTEIN 6.8 g/dL (6.4-8.9)
[2024-05-06 17:05] LABS: SALICYLATE < 1.5 mg/dL
[2024-05-06 17:16] LABS: THYROID STIMULATING HORMONE 1.86 uIU/mL (0.34-5.60)
--- NOTE | 2024-05-06 18:55 | TELEPSYCH PHYS NOTE ---
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 denies AVH. no HI. 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 had a really bad day at work and work has been very stressful lately she feels very hopeless and trapped and feels like she does not want to be alive. no active plan. was told to come to ED from [employer] [facility]. home meds in chart. UDS pos amph. etoh <10. Chief Complaint: "I was really overwhelmed today at work and felt very anxious and was having thoughts of suicide...." History of Present Illness: Patient is a 34 y/o female who presents to ED for thoughts of suicide and increased anxiety. Patient states she is in the [employer] and had a very difficult day today. She reports she became very anxious and started having thoughts that she did not want to be alive. She denies having a plan and states "I would not hurt myself but was just so overwhelmed today." She reports a hx of anxiety and states she was taking escitalopram but stopped it after about two weeks because it made her tired. She states she has leave this weekend and will get to see her family in [place] so she is looking forward to this. She denies current SI and denies HI. She denies AH and VH. She said she was told to come to the ED by the counselor on the [facility] for an evaluation. She denies hx of inpatient psychiatric hospitalizations. She states she does not feel she is a threat to herself. Suicide Ideation - Homicide Ideation - Self Harm: Denies SI, HI and self-harm Psychiatric History - Treatment History: denies hx of inpatient treatment Community Resources Accessed: none Family Psych History/ History of suicide: denies Nutritional Status: No nutritional concerns - Medication & Allergies Home Medications: Ambulatory Orders Medication Instructions Recorded Confirmed Spironolactone [Aldactone] 25 mg PO DAILY 07/12/22 05/06/24 Dextroamphetamine/Amphetamine 10 mg PO DAILY 05/06/24 05/06/24 [Adderall 10 mg Tablet] Allergies/Adverse Reactions: Allergies Allergy/AdvReac Type Severity Reaction Status Date / Time No Known Drug Allergies Allergy Verified 05/06/24 16:08 - Drug & Alcohol History Does patient have Drug/ETOH history or addictive behavior?: No Use: Uses substance without health or social issues: Alcohol Abuse: Recurrent use of substance despite neg consequences: NONE Dependence: Experiences withdrawal or developed tolerances: NONE - Trauma Does the patient have a history of trauma, abuse, neglect or explotation?: Yes History of trauma, abuse, neglect, or exploitation (Notes): would not disclose - Personal Information Does the patient have a history or present tendencies for violence?: None Services History: active duty [employer] Does patient have any Legal Charges or Investigations?: No Environment & Living Situation - Social, Peer-Group (Note): At home Marital Status - Family Circumstances: single Stressors - Financial Concerns: "work" Education: unknown Occupation: [employer] Collateral - Interdisciplinary Input: ED record review - Medical History Psychiatric: reports: Depression, Anxiety Neurological: reports: None Eyes, Ears, Nose, Throat: reports: None Cardiovascular: reports: None Respiratory: reports: None Gastrointestinal: reports: GERD Urinary: reports: None SUPERVISOR GROVE: reports: None Musculoskeletal: reports: None Skin: reports: None - Surgical History General: reports: Appendectomy, Gastric surgery HEENT: reports: Tonsil/Adenoidectomy Childhood History: denies hx of trauma - Mental Status Exam Appearance and Attire: hospital attire, appears stated age Attitude and Behavior: calm, cooperative Speech: regular rate, rhythm and amount Affect and Mood: mood - "better now"; affect - congruent Association and Thought Process: linear, goal-directed Thought Content: denies SI, HI Perception: denies AH and VH Sensorium, memory and orientation: awake, alert, oriented Intellectual - Cognitive functioning: average Insight and Judgement: fair/fair Emotional and Behavioral Functioning: no agitation Ability to Self-Care: age appropriate - Personal Goals Short-term Goals: see my family next week - Risk/Protective Factors Risk Factors: Trigger events leading to humiliation, shame and/or despair Protective Factors / Internal: Identifies reasons for living Protective Factors / External: Supportive social network of family or friends, Positive therapeutic relationships, Engaged in work or school - Plan Impression/Risk Assessment: 34 y/o female presents to ED for anxiety and thought of suicide. Patient has hx of anxiety. She denies SI and states she never had a plan and was feeling "overwhelmed" today. She denies HI. She denies AH and VH. She reports she was taking escitalopram but stopped about 2 weeks ago because it was making her tired. Patient is future oriented and is looking forward to visiting her family next week. Risk to self is low. Recommend outpatient level of care. Treatment - Therapy Recommendations: Outpatient - supportive Recommend following up with medication provider to discuss medication adjustments. Please add to discharge paperwork: If you are having any thoughts you do not want to live, thoughts of hurting yourself, or thoughts of hurting anyone else, please call 911, the crisis line at [phone], or go to your nearest Emergency Department. Pharmacological Recommendations: Recommend restarting escitalopram 10 mg, PO, once daily taken in the evening to reduce tiredness. Recommend hydroxyzine 25 mg, PO, one tablet three times daily as needed for anxiety. - Time Spent & Provider Location Telepsych consultation conducted via videoconferencing: Yes List names and roles of persons who participated in consult: Edith Chu, patient. Erlinda Garay, MSN, JOURNEYMAN PAINTER, PMHNP- Telepsych Provider Location: remote Time Spent (Minutes): 65
== END 2024-05-06 19:39 | disposition home or self-care (01) ==
LOC: EDUNIT# → ED 16:01
DX: R45.851 Suicidal ideations (principal); F41.9 Anxiety disorder, unspecified; F32.A Depression, unspecified; Z79.899 Other long term (current) drug therapy
CPT/HCPCS: 36415; 80053; 80143; 80179; 80306; 81003; 81025; 82077; 83690; 84443; 85025; 90834; 99284; Q3014; 81001; 87086